=== PATIENT | male | born 1990 ===

== ENCOUNTER 2022-08-12 16:00 | Emergency (ER) | payer SELFPAY ==
--- NOTE | 2022-08-12 16:46 | Emergency Department Report ---
HPI - General Chief Complaint: Allergic Reaction Time Seen by Provider: 08/12/22 16:34 - HPI HPI: 32-year-old male presents to the hospital with complaints of acute allergic reaction after eating [place] food. Patient denies previous allergic reaction in the past. He developed generalized pruritic rash with mild lip swelling. Patient took Benadryl 50 mg prior to ED arrival and rash persists. Patient received IV Benadryl, Pepcid, and Solu-Medrol ordered by midlevel provider prior to my evaluation. Patient reports improving symptoms and denies respiratory symptoms at this time Yoruba-speaking software installer used ED Past Medical Hx - Medications Home Medications: Home Medications Medication Instructions Recorded Confirmed Last Taken Type EPINEPHrine [Epipen] 0.3 mg IJ ONCE #1 08/12/22 Unknown Rx Famotidine [Pepcid] 20 mg PO BID #10 tablet 08/12/22 Unknown Rx diphenhydrAMINE [Benadryl CAP] 50 mg PO Q8HR PRN #20 capsule 08/12/22 Unknown Rx predniSONE [Deltasone] 40 mg PO QDAY 5 Days tab 08/12/22 Unknown Rx ED Review of Systems ROS: Stated complaint: ALLERGIC REACTION Other details as noted in HPI Physical Exam - Physical Exam Vital Signs: Vital Signs 08/12/22 16:07 Temperature 98.6 F Pulse Rate 120 H Respiratory 16 Rate Blood Pressure 138/84 [Right] O2 Sat by Pulse 95 Oximetry Physical Exam: General: No acute distress Head: Atraumatic Eyes: normal appearance ENT: Moist mucous membranes, no posterior pharyngeal edema or stridor Neck: Normal appearance, no midline tenderness Chest: Clear to auscultation bilaterally CV: Regular rate and rhythm Abdomen: Soft, normal bowel sounds, nontender, nondistended, no rebound or guarding Back: Normal inspection Extremity: Normal inspection, full range of motion Neuro: Alert O x 3, no facial asymmetry, speech clear, no gross motor sensory deficit Psych: Appropriate behavior Skin: Generalized pruritic erythematous rash ED Course Vital Signs 08/12/22 16:07 Temperature 98.6 F Pulse Rate 120 H Respiratory 16 Rate Blood Pressure 138/84 [Right] O2 Sat by Pulse 95 Oximetry - Reevaluation(s) Reevaluation #1: 08/12/22 20:10 Rash has completely resolved at this time and patient is asymptomatic ED Medical Decision Making - Medical Decision Making 32-year-old male presents to the hospital with a blood gas after eating [place] food. Symptoms improved with Solu-Medrol, Benadryl, and Pepcid. Patient observed for several hours without exacerbation of symptoms. He will be discharged with meds for acute allergic reaction as well as an EpiPen to take as needed Critical care attestation.: If time is entered above; I have spent that time in minutes in the direct care of this critically ill patient, excluding procedure time. ED Disposition Clinical Impression: Acute allergic reaction, Food allergy Disposition: HOME / SELF CARE / HOMELESS Is pt being admited?: No Does the pt Need Aspirin: No Condition: Stable Instructions: How to Use an Auto-Injector Pen, Food Allergy Additional Instructions: Take the medication as prescribed. Use the epinephrine pen prescribed as needed for severe allergic reaction that includes severe shortness of breath, throat tightness or tongue swelling. Follow-up with your doctor or doctor/clinic provided. Return if symptoms worsen as indicated by your discharge instructions. [facility] el medicamento segn lo recetado. Use la pluma de epinefrina prescrita segn sea necesario para alfredo reaccin alrgica grave que incluya dificultad para respirar grave, opresin en la garganta o hinchazn de la lengua. Seguimiento con beckman mdico o mdico/clnica proporcionado. Regrese si los sntomas empeoran segn lo indicado por julius instrucciones de gabby. Prescriptions: diphenhydrAMINE [Benadryl CAP] 50 mg PO Q8HR PRN #20 capsule PRN Reason: Allergy Symptoms predniSONE [Deltasone] 40 mg PO QDAY 5 Days tab EPINEPHrine [Epipen] 0.3 mg IJ ONCE #1 Famotidine [Pepcid] 20 mg PO BID #10 tablet Referrals: JEAN-PIERRE CAMPBELL MD [Staff Physician] - 3-5 Days Time of Disposition: 20:14 Print Language: JAPANESE
[2022-08-12] MEDS ORDERED: methylPREDNISolone Sod Succinate 125 MG/2 ML INJ IV ONE (17:00)
[2022-08-12] MEDS ORDERED: FAMOTIDINE 20 MG/2 ML INJ IV ONE (17:00)
[2022-08-12] MEDS ORDERED: diphenhydrAMINE 50 MG/ML VIAL IV ONE (17:00)
[2022-08-12 20:07] VITALS: BP 124/110
== END 2022-08-12 20:38 | disposition home or self-care (01) ==
LOC: ED 16:00
DX: T78.40XA Allergy, unspecified, initial encounter (principal); Z79.899 Other long term (current) drug therapy; X58.XXXA Exposure to other specified factors, initial encounter
CPT/HCPCS: 96374; 96375; 99283; J1200; J2930; J3490